=== PATIENT | female | born 1960 | race Caucasian/White ===

== ENCOUNTER → 2024-05-19 14:52 | Outpatient (REF) | payer OTHER, SELFPAY | LOC: HWWDC 14:52 | PROVIDERS: ATTENDING PHYSICIAN Obstetrics & Gynecology Gynecology; FAMILY PHYSICIAN Internal Medicine | DX: Z12.31 Encounter for screening mammogram for malignant neoplasm of breast (principal) | CPT/HCPCS: 77063; 77067 ==

== ENCOUNTER → 2024-05-30 09:00 | Outpatient (REF) | payer OTHER, SELFPAY | LOC: HWRAD 09:00 | PROVIDERS: ATTENDING PHYSICIAN Nurse Practitioner; FAMILY PHYSICIAN Internal Medicine | DX: K82.4 Cholesterolosis of gallbladder (principal) | CPT/HCPCS: 76700 ==

== ENCOUNTER → 2024-08-27 10:33 | Outpatient (REF) | payer OTHER, SELFPAY | LOC: HWRAD 10:33 | PROVIDERS: ATTENDING PHYSICIAN Otolaryngology; FAMILY PHYSICIAN Internal Medicine | DX: E04.1 Nontoxic single thyroid nodule (principal) | CPT/HCPCS: 76536 ==

== ENCOUNTER → 2024-10-01 14:34 | Outpatient (REF) | payer OTHER, SELFPAY | LOC: HWRAD 14:34 | PROVIDERS: ATTENDING PHYSICIAN Internal Medicine Rheumatology; FAMILY PHYSICIAN Internal Medicine | DX: M19.049 Primary osteoarthritis, unspecified hand (principal) | CPT/HCPCS: 73130 ==

== ENCOUNTER → 2024-10-08 12:26 | Outpatient (REF) | payer OTHER, SELFPAY | LOC: HWRAD 12:26 | PROVIDERS: ATTENDING PHYSICIAN Internal Medicine Rheumatology; FAMILY PHYSICIAN Internal Medicine; REFERRING PHYSICIAN Student in an Organized Health Care Education/Training Program | DX: R22.1 Localized swelling, mass and lump, neck (principal) | CPT/HCPCS: 76536 ==

== ENCOUNTER → 2024-10-14 14:27 | Outpatient (REF) | payer OTHER, SELFPAY | LOC: HWRAD 14:27 | PROVIDERS: ATTENDING PHYSICIAN Internal Medicine Rheumatology; FAMILY PHYSICIAN Internal Medicine | DX: M81.0 Age-related osteoporosis without current pathological fracture (principal) | CPT/HCPCS: 77080 ==

== ENCOUNTER → 2024-10-28 14:35 | Outpatient (REF) | payer OTHER, SELFPAY | LOC: HWRAD 14:35 | PROVIDERS: ATTENDING PHYSICIAN Internal Medicine Rheumatology; FAMILY PHYSICIAN Internal Medicine | DX: K21.9 Gastro-esophageal reflux disease without esophagitis (principal); M47.812 Spondylosis without myelopathy or radiculopathy, cervical region; R59.0 Localized enlarged lymph nodes | CPT/HCPCS: 71046 ==

== ENCOUNTER → 2024-11-18 07:58 | Outpatient (REF) | payer OTHER, SELFPAY | LOC: HWRAD 07:58 | PROVIDERS: ATTENDING PHYSICIAN Internal Medicine | DX: J18.9 Pneumonia, unspecified organism (principal) | CPT/HCPCS: 71046 ==

== ENCOUNTER 2025-01-09 13:57 | Emergency (ER) | payer OTHER, SELFPAY ==
[2025-01-09 14:02] VITALS: BP 159/96
[2025-01-09 15:48] LABS: % Basophils 0.5 % (0-2); % Eosinophils 2.2 % (0-6); % Immature Granulocytes 0.4 % (0-0.5); % Lymphocytes 19.1 % (20.5-51.1); % Monocytes 7.6 % (1.7-9.3); % Neutrophils 70.2 % (42.2-75.2); Absolute Eosinophils 0.2 10^3/uL (0-0.7); Absolute Lymphocytes 1.4 10^3/uL (1.2-3.4); Absolute Monocytes 0.6 10^3/uL (0.1-0.6); Absolute Neutrophils 5.2 10^3/uL (1.4-6.5); Hematocrit 40.5 % (37.0-47.0); Hemoglobin 13.8 g/dL (12.0-16.0); Mean Corp Hgb Conc. 34.1 g/dL (33.0-37.0); Mean Platelet Volume 9.4 fL (7.4-10.4); Nucleated Red Blood Cells % 0 %; Platelet Count 235 10^3/uL (130-400); Red Blood Cell Count 4.45 10^6/uL (4.20-5.40); Red Cell Dist. Width 12.8 % (11.5-14.5); White Blood Cell Count 7.4 10^3/uL (4.8-10.8)
[2025-01-09 16:00] LABS: ALT (SGPT) 21 U/L (0-35); AST (SGOT) 23 U/L (14-36); Albumin 4.5 g/dl (3.5-5.0); Alkaline Phosphatase 63 U/L (38-126); Blood Urea Nitrogen 16 mg/dl (7-17); Calcium 9.5 mg/dl (8.4-10.2); Carbon Dioxide 27 mmol/L (22-30); Chloride 104 mmol/L (98-107); Glucose 87 mg/dl (70-99); Potassium 4.1 mmol/L (3.5-5.1); Sodium 138 mmol/L (135-145); Total Bilirubin 0.7 mg/dl (0.2-1.3); Total Protein 7.1 g/dl (6.3-8.2); eGFR > 60.00
[2025-01-09 16:04] LABS: C-Reactive Protein < 5.00 mg/L (0.0-10.00)
[2025-01-09 16:45] LABS: Erythrocyte Sed Rate 70 mm/hour (0-20)
--- NOTE | 2025-01-09 21:05 | ED.GENMED ---
History of Present Illness
General
Chief Complaint: Eye Problems
Source: patient
Exam Limitations: none
Time Seen by Provider: 01/09/25 15:28
Nursing documentation reviewed up to this point in time: agreed with
History of Present Illness
History of Present Illness:
Patient to ED wt complaint of flashes of light to left peripheral vision, headache. Sympotms started 1 week ago. She has a history of migraines but states this feels different. Has never had light flashing before. She was evaluated by her
gra[facility] registration specialist twice this week. She reports normal dialated exam. Brought self to ED for fco;l
Past History
Past History
ED Past Medical History: None
ED Past Surgical History: None
Review of Systems
Review of Systems
Allergies reviewed?: Yes
All Other Systems: ROS reviewed and negative except as documented in HPI and ROS
Constitutional: Reports no symptoms
EENT: Reports other (flashes of light left peripheral vision)
Respiratory: Reports no symptoms
Cardiac: Reports no symptoms
ABD/GI: Reports no symptoms
: Reports no symptoms
Musculoskeletal: Reports no symptoms
Skin: Reports no symptoms
Neurological: Reports headache
Psychiatric: Reports no symptoms
Phy Exam
General Physical Exam
General Presentation: well appearing and no apparent distress
General age: appears stated age
General Skin: warm and dry
General Habitus: normal
General Mental: alert
ENT Exam
ENT Exam: TM's normal and neck supple
Eye Exam
Eye Exam: PERRL, EOMI, conjunctiva normal, disc sharp and globe normal
Neurological Exam
Neurological Exam: alert, oriented x3, CN II-XII intact, no motor deficits, no sensory deficits, speech normal and normal gait
Musculoskeletal Exam
Musculoskeletal Exam: full ROM and neuro vasc intact
Skin Exam
Skin Exam: normal color, warm/dry and no rash
Psychiatric Exam
Psychiatric Exam: normal mood/affect
Course
Orders/Labs/Results
Orders:
Orders
01/09/25 15:32
CRP [C-Reactive Protein] Urgent
Complete Blood Count/With Diff Urgent
Comprehensive Metabolic Panel Urgent
Sed Rate [Erythrocyte Sed Rate] Urgent
01/09/25 16:03
CT Head W/o Iv Contrast Urgent
Comment:
Reason For Exam: pain, vision changes
Abnormal Lab Results
01/09/25
15:32
Lymphocytes % 19.1 L %
(20.5-51.1)
ESR 70 H mm/hour
(0-20)
01/09/25 15:32
01/09/25 15:32
Vital Signs
Initial and Last Documented VS:
Initial Vital Signs
Temp Pulse Resp BP Pulse Ox
98 F 80 18 159/96 100
01/09/25 14:02 01/09/25 14:02 01/09/25 14:02 01/09/25 14:02 01/09/25 14:02
Last Documented Vital Signs
Temp Pulse Resp BP Pulse Ox
98 F 80 18 159/96 100
01/09/25 14:02 01/09/25 14:02 01/09/25 14:02 01/09/25 14:02 01/09/25 14:02
*Radiology
Radiology exam reviewed: radiology read reviewed
*Pulse Oximetry
Patient hypoxic: no
*Critical Care Note
Total Time (30-74mins, 75-104mins- exclusive of procedures): Not Applicable
Update Note
Update Note:
No concerning findings on physical exam or CT today. Neurologically intact. Labs reviewed, WBC normal. Sed rate elevation noted. Case discussed with dr. cline. Will discharge home, close follow up with PCP. Given number for neuro follow up
for her migraines. She will call sunday to schedule juliet. Given instructions on /s/s to return to ED and she is agreeable to plan.
ED Attending Note
-
Portions of this chart may have been created with voice recognition software.� Occasional wrong word or��sound alike� substitutions may have occurred due to the inherent limitations of voice recognition software.
Discharge Plan
Departure
Patient Disposition: Home (Routine Discharge)
Date of Disposition: 01/09/25
Time of Disposition: 18:40
Patient with high blood pressure during this ER visit?: No
Condition: Good
Covid-19: Not Applicable
Discharge Problem:
Migraine
Instructions: Migraine in adults
Referrals:
Darion Ceballos MD [Active] - Call in 1-3 days for appt
Leti Cobian MD [Family Provider] -
Activity Restrictions/Additional Instructions:
Return to the emergency department immediately for any changes in/worsening of your symptoms.
Interventions
Interventions:
*Risk Screen - Suicide Last Done: 01/09/25 14:09
*General Assessment Last Done: 01/09/25 14:02
*Neglect/Abuse Screening Last Done: 01/09/25 14:02
ED- Fall Risk Assessment Last Done: 01/09/25 15:50
*ED COVID-19 Vaccine History Last Done: 01/09/25 15:50
*Nursing Disposition Last Done: 01/09/25 19:10
Discharge Date and Time
Discharge Date/Time: 01/09/25 19:11
Print Language: [place]
== END 2025-01-09 19:11 | disposition home or self-care (01) ==
LOC: EMR 13:57
PROVIDERS: Nurse Practitioner; EMERGENCY PHYSICIAN Emergency Medicine; FAMILY PHYSICIAN Internal Medicine
DX: G43.909 Migraine, unspecified, not intractable, without status migrainosus (principal)
CPT/HCPCS: 99284; 70450; 80053; 85025; 85652; 86140

== ENCOUNTER → 2025-04-03 09:50 | Outpatient (REF) | payer OTHER, SELFPAY | LOC: HWRAD 09:50 | PROVIDERS: ATTENDING PHYSICIAN Specialist; FAMILY PHYSICIAN Internal Medicine | DX: K82.4 Cholesterolosis of gallbladder (principal) | CPT/HCPCS: 76700 ==

== ENCOUNTER → 2025-05-21 08:15 | Outpatient (REF) | payer OTHER, SELFPAY | LOC: HWWDC 08:15 | PROVIDERS: ATTENDING PHYSICIAN Internal Medicine; REFERRING PHYSICIAN Obstetrics & Gynecology Gynecology | DX: Z12.31 Encounter for screening mammogram for malignant neoplasm of breast (principal) | CPT/HCPCS: 77063; 77067 ==

== ENCOUNTER → 2025-06-19 13:33 | Outpatient (REF) | payer OTHER, SELFPAY | LOC: RAD 13:33 | PROVIDERS: ATTENDING PHYSICIAN Specialist; FAMILY PHYSICIAN Internal Medicine | DX: R10.84 Generalized abdominal pain (principal) | CPT/HCPCS: 74177; Q9967 ==

== ENCOUNTER 2025-07-15 06:26 | Day surgery (SDC) | payer OTHER, SELFPAY | END 2025-07-15 14:11 | disposition home or self-care (01) | LOC: GI 06:26 | PROVIDERS: ATTENDING PHYSICIAN Specialist | DX: R10.13 Epigastric pain (principal); R11.2 Nausea with vomiting, unspecified; K22.89 Other specified disease of esophagus; K31.7 Polyp of stomach and duodenum; K31.89 Other diseases of stomach and duodenum; K21.00 Gastro-esophageal reflux disease with esophagitis, without bleeding | CPT/HCPCS: 43239; 88305; 88342 ==

== ENCOUNTER → 2025-08-17 11:04 | Outpatient (REF) | payer OTHER, SELFPAY | LOC: HWRAD 11:04 | PROVIDERS: ATTENDING PHYSICIAN Otolaryngology; FAMILY PHYSICIAN Internal Medicine | DX: E04.1 Nontoxic single thyroid nodule (principal) | CPT/HCPCS: 76536 ==